=== PATIENT | male | born 1975 | race Caucasian/White ===

== ENCOUNTER 2017-05-11 22:58 | Emergency (ER) | payer OTHER ==
[~2017-05-11] VITALS: Ht 177.8 cm; Wt 142.3 kg
[2017-05-12] MEDS ORDERED: ZITHROMAX250 MG PO (00:28)
[2017-05-12 00:46] VITALS: BP 171/80
== END 2017-05-12 00:47 | disposition home or self-care (01) ==
LOC: EME 22:58
DX: R05 Cough (principal); Z72.0 Tobacco use; Z88.0 Allergy status to penicillin
CPT/HCPCS: 71020; 99281; 99284